=== PATIENT | female | born 1990 | race Caucasian/White ===

== ENCOUNTER 2017-01-26 15:40 | Emergency (ER) | payer MEDICAID ==
[~2017-01-26] VITALS: Ht 162.6 cm; Wt 46.7 kg
[2017-01-26 15:42] VITALS: BP 109/68
--- NOTE | 2017-01-26 17:18 | Emergency Room Report ---
History of Present Illness General Chief Complaint: Abdominal Pain Source: Patient Present Illness HPI 26 YO Female presents to the ED c/o 01/19 in severity midline lower abdominal pain x 2 days with nausea, no vomiting, pt. reports increased flatulence and looser than normal stool. denies constipation. denies recent abx use. reports frequency , denies dysuria, hematuria, fevers or chills. denies vaginal d/c. denies blood in the stool , profuse watery diarrhea, recent travel or dark tarry stool. Denies CP, Palpitations, LOC, AMS, dizziness, Changes in Vision, Sensation, paresthesias, or a sudden severe headache. Allergies: Coded Allergies: PENICILLINS (Verified Allergy, Unknown, 01/26/17) SULFA (SULFONAMIDE ANTIBIOTICS) (Verified Allergy, Unknown, 01/26/17) Patient History Past Medical History: see triage record Past Surgical History: none Pertinent Family History: none Last Menstrual Period: 12/30/16 Now: No Reviewed Nursing Documentation: PMH: Agreed, PSxH: Agreed Nursing Documentation-PMH Past Medical History: No Stated History Review of Systems All Other Systems: negative except mentioned in HPI Physical Exam Vital Signs Date Time Temp Pulse Resp B/P (MAP) Pulse Ox O2 Delivery O2 Flow Rate FiO2 01/26/17 15:42 98.2 83 16 109/68 100 Room Air Sp02 EP Interpretation: reviewed, normal General Appearance: no apparent distress, alert, GCS 15, non-toxic Head: normocephalic, atraumatic Eyes: bilateral eye normal inspection, bilateral eye PERRL ENT: hearing grossly normal, normal voice Neck: full range of motion Respiratory: lungs clear, normal breath sounds, speaking full sentences Cardiovascular #1: regular rate, rhythm Gastrointestinal: normal bowel sounds, non tender, soft, no guarding, no rebound Rectal: deferred Genitourinary: normal inspection, no CVA tenderness Musculoskeletal: back normal, gait/station normal, normal range of motion, non- tender Neurologic: alert, oriented x3, responsive, motor strength/tone normal, sensory intact, speech normal Psychiatric: judgement/insight normal, memory normal, mood/affect normal Skin: normal color, no rash, warm/dry, well hydrated Medical Decision Making PA Attestation Dr. Kaur is my supervising Physician whom patient management has been discussed with. Diagnostic Impression: Primary Impression: UTI (urinary tract infection) Qualified Codes: N30.00 - Acute cystitis without hematuria Additional Impression: Gastroenteritis ER Course Pt. presents to the ED c/o 01/19 in severity midline lower abdominal pain x 2 days with nausea, no vomiting, pt. reports increased flatulence and looser than normal stool. denies constipation. denies recent abx use. reports frequency , denies dysuria, hematuria, fevers or chills. denies vaginal d/c. denies blood in the stool , profuse watery diarrhea, recent travel or dark tarry stool. Ddx considered but are not limited to Diverticulitis, acute appy, diarrhea,UC, PUD, GE, pancreatitis, gallstone Vital signs: are WNL, pt. is afebrile H&PE are most consistent with possible UTI, will r/o , viral GE also suspected. ORDERS: -UA : Positive for UTI - Urine Hcg: Negative for . ED INTERVENTIONS: -- . Bentyl PO -[place] PO -- pt. also reports hx of eczema and requests a refill of her triamcinolone cream. DISCHARGE: At this time pt. is stable for d/c to home. Will provide printed patient care instructions, and any necessary prescriptions. Care plan and follow up instructions have been discussed with the patient prior to discharge. Labs Test 01/26/17 16:53 Urine Color Yellow Urine Appearance Clear Urine pH 6.5 (4.5-8.0) Urine Specific [place] 1.020 (1.005-1.035) Urine Protein 2+ (NEGATIVE) Urine Glucose (UA) Negative (NEGATIVE) Urine Ketones 1+ (NEGATIVE) Urine Occult Blood Negative (NEGATIVE) Urine Nitrite Positive (NEGATIVE) Urine Bilirubin Negative (NEGATIVE) Urine Urobilinogen Normal MG/DL (0.0-1.0) Urine Leukocyte Esterase 1+ (NEGATIVE) Urine RBC 0-2 /HPF (0 - 2) Urine WBC 2-4 /HPF (0 - 2) Urine Squamous Epithelial Cells Few /LPF (NONE/OCC) Urine Bacteria Moderate /HPF (NONE) Urine HCG, Qualitative Negative Last Vital Signs Date Time Temp Pulse Resp B/P (MAP) Pulse Ox O2 Delivery O2 Flow Rate FiO2 01/26/17 15:42 98.2 83 16 109/68 100 Room Air Disposition: HOME, SELF-CARE Condition: Stable Scripts Triamcinolone Acet (Triamcinolone Acetonide) 15 Gm Cream..g. 1 APPLIC APPLIC BID, #15 GM Prov: Ramona Rodriguez 01/26/17 Nitrofurantoin Monohyd/M-Cryst* (MACROBID 100 MG*) 100 Mg Capsule 100 MG ORAL EVERY 12 HOURS for 5 Days, #10 CAP Prov: Ramona Rodriguez 01/26/17 Dicyclomine Hcl* (BENTYL*) 10 Mg Capsule 10 MG ORAL FOUR TIMES A DAY for 3 Days, #9 CAP Prov: Ramona Rodriguez 01/26/17 Metoclopramide Hcl* (REGLAN*) 10 Mg Tablet 10 MG ORAL THREE TIMES A DAY, #20 TAB Prov: Ramona Rodriguez 01/26/17 Referrals: NOT CHOSEN IPA/MD,REFERRING (PCP) Patient Instructions: Abdominal Pain, Adult, Urinary Tract Infection Additional Instructions: Take medications as directed. Follow up with a Primary Care Provider in 3-5 days, even if your symptoms have resolved. --Please review list of primary care clinics, if you do not already have a primary care provider Return sooner to ED if new symptoms occur, or current symptoms become worse. - Please note that this Emergency Department Report was dictated using [employer] examiner technology software, occasionally this can lead to erroneous entry secondary to interpretation by the dictation equipment. Ramona Rodriguez Jan 26, 2017 17:18
[2017-01-26] MEDS ORDERED: Dicyclomine HCl 10mg/5ml oral soln ORAL ONE (17:30)
[2017-01-26 17:35] LABS: APPEARANCE,URINE CLEAR; KETONES,URINE 1+ (NEGATIVE); LEUKOCYTE ESTERASE ,URINE 1+ (NEGATIVE); NITRITE,URINE POSITIVE (NEGATIVE); PH,URINE 6.5 (4.5-8.0); PROTEIN,URINE 2+ (NEGATIVE); UROBILINOGEN,URINE NORMAL MG/DL (0.0-1.0)
[2017-01-26 17:57] LABS: BACTERIA,URINE MODERATE /HPF; RBC,URINE 0-2 /HPF (0 - 2); SQUAMOUS EPITHELIAL CELL,UR FEW /LPF (NONE/OCC)
[2017-01-26] MEDS ORDERED: Norco 5mg/325mg tab ORAL ONE (18:30)
[2017-01-26] MEDS ORDERED: Metoclopramide 10mg/2ml Inj IM ONE (18:30)
[2017-01-26] MEDS ORDERED: BENTYL10 MG ORAL (19:25)
[2017-01-26] MEDS ORDERED: REGLAN10 MG ORAL (19:25)
[2017-01-26] MEDS ORDERED: NITROFURANTOIN100 M2 ORAL (19:25)
[2017-01-26] MEDS ORDERED: KENALOG 0.025%15 GM APPLIC (19:42)
[2017-01-26 19:50] VITALS: BP 118/68
== END 2017-01-26 19:50 | disposition home or self-care (01) ==
LOC: EMR 17:03
DX: N39.0 Urinary tract infection, site not specified (principal); Z88.0 Allergy status to penicillin; Z88.2 Allergy status to sulfonamides; K52.9 Noninfective gastroenteritis and colitis, unspecified
CPT/HCPCS: 81003; 81025; 87086; 87181; 96372; 99284; J2765